=== PATIENT | male | born 1965 | race Two or more races ===

== ENCOUNTER 2017-09-06 19:27 | Inpatient (IN) | payer BC ==
[~2017-09-06] VITALS: Ht 172.7 cm; Wt 81.6 kg
== END 2017-09-09 17:00 | disposition home or self-care (01) | DRG 639 ==
LOC: ER 19:27 → ICU-2 23:32 → MEDJ 09-09 12:06
DX: E11.10 Type 2 diabetes mellitus with ketoacidosis without coma (principal)

== ENCOUNTER → 2020-12-23 | Emergency (ER) | payer BC ==
[~2020-12-23] VITALS: Ht 152.4 cm; Wt 89.8 kg
[~2020-12-23] MED LIST: FORTAMET500 MG; ROSUVASTATIN CA10 MG; TOPROL XL25 M1
== END | disposition home or self-care (01) ==
LOC: ER 10:02
DX: R07.89 Other chest pain (principal); M79.661 Pain in right lower leg